=== PATIENT | male | born 1970 | race Caucasian/White ===

== ENCOUNTER → 2018-12-09 | Outpatient (CLI) | payer OTHER | LOC: RESP 06:50 | PROVIDERS: ATTEND Emergency Medicine | DX: G47.33 Obstructive sleep apnea (adult) (pediatric) (principal); G47.37 Central sleep apnea in conditions classified elsewhere ==

== ENCOUNTER → 2019-01-29 | Outpatient (CLI) | payer SELFPAY | LOC: RESP 20:52 | PROVIDERS: ATTEND Emergency Medicine | DX: G47.33 Obstructive sleep apnea (adult) (pediatric) (principal); G47.36 Sleep related hypoventilation in conditions classified elsewhere ==